=== PATIENT | female | born 1945 | race Caucasian/White ===

== ENCOUNTER 2017-04-05 09:29 | Day surgery (SDC) | payer MEDICARE, OTHER ==
[~2017-04-05] VITALS: Ht 152.4 cm; Wt 61.4 kg
[~2017-04-05 09:29] MED LIST: ALEN70TA13 PO; BENZONATATE PO; CALC-854 PO; FLUT16SP26 BOTHNARES; INSU100I8 SQ; LANTUS SUBCUT; LEVO150T8 PO; LIOT25TA8 PO; LISI-645 PO; METF500T7 PO; OMEP20TA5 PO; ONDA4TAB6 PO; PANT-47 PO; PRED2.5T4 PO; PREG50CA PO; RITUXIMAB IV; VERA180T7 PO
[2017-04-05 09:40] VITALS: BP 141/61
[2017-04-05] MEDS ORDERED: fentaNYL/PF 50MCG/1 ML 2ML syringe ONE (09:46)
[2017-04-05] MEDS ORDERED: midazolam 2 mg/2 ml injection ONE (09:47)
[2017-04-05] MEDS ORDERED: LIDOcaine Viscous 15ml cup ONE (09:47)
[2017-04-05 10:32] VITALS: BP 130/59
[2017-04-05 10:42] VITALS: BP 131/66
[2017-04-05 10:52] VITALS: BP 140/63
[2017-04-05 11:02] VITALS: BP 139/63
== END 2017-04-05 11:05 | disposition home or self-care (01) ==
LOC: GI LAB 09:29
PROVIDERS: ATTEND Internal Medicine Gastroenterology
DX: K44.9 Diaphragmatic hernia without obstruction or gangrene (principal); K29.70 Gastritis, unspecified, without bleeding; K31.89 Other diseases of stomach and duodenum; I10 Essential (primary) hypertension; E11.9 Type 2 diabetes mellitus without complications; K21.9 Gastro-esophageal reflux disease without esophagitis; Z90.49 Acquired absence of other specified parts of digestive tract; M19.90 Unspecified osteoarthritis, unspecified site; E03.9 Hypothyroidism, unspecified; Z91.011 Allergy to milk products; Z88.8 Allergy status to other drugs, medicaments and biological substances; Z79.4 Long term (current) use of insulin; Z79.899 Other long term (current) drug therapy
CPT/HCPCS: 43239; J2250; J3010; J7030; 88305; A4620; G0500

== ENCOUNTER 2018-06-19 15:34 | Emergency (ER) | payer MEDICARE, OTHER ==
[~2018-06-19] VITALS: Ht 154.9 cm; Wt 77.7 kg
[~2018-06-19 15:34] MED LIST changes: -BENZONATATE PO; -FLUT16SP26 BOTHNARES; -METF500T7 PO; -ONDA4TAB6 PO; -PANT-47 PO; +VERA180T11 PO; -VERA180T7 PO
[2018-06-19] MEDS ORDERED: HYDROcodone/acetaminophen 5mg/325mg tablet PO ONE (16:00)
[2018-06-19] MEDS ORDERED: ondansetron 4mg rapidly disintigrating tab PO ONE (16:05)
[2018-06-19] MEDS ORDERED: TRAM50TA2 PO (16:15)
[2018-06-19 16:38] VITALS: BP 178/87
[2018-06-20] MEDS ORDERED: DULO-31 PO (16:09)
[2018-06-20] MEDS ORDERED: INSU100V9 SQ (16:09)
[2018-06-20] MEDS ORDERED: INSU100C10 SQ (16:09)
[2018-06-20] MEDS ORDERED: LIOT25TA6 PO (16:09)
[2018-06-20] MEDS ORDERED: OMEP20CA10 PO (16:09)
[2018-06-20] MEDS ORDERED: LEVO125T PO (16:09)
[2018-06-20] MEDS ORDERED: VERA120T9 PO (16:09)
[2018-06-20] MEDS ORDERED: LISI-600 PO (16:09)
[2018-06-20] MEDS ORDERED: PRED2.5T4 PO (16:09)
[2018-06-23] MEDS ORDERED: LISI-600 PO (14:52)
== END 2018-06-19 16:47 | disposition home or self-care (01) ==
LOC: ER 15:35
DX: S42.215A Unspecified nondisplaced fracture of surgical neck of left humerus, initial encounter for closed fracture (principal); S80.12XA Contusion of left lower leg, initial encounter; S80.11XA Contusion of right lower leg, initial encounter; I10 Essential (primary) hypertension; E11.9 Type 2 diabetes mellitus without complications; M06.9 Rheumatoid arthritis, unspecified; Z98.890 Other specified postprocedural states; Z88.8 Allergy status to other drugs, medicaments and biological substances; Z79.4 Long term (current) use of insulin; Z79.899 Other long term (current) drug therapy; W17.89XA Other fall from one level to another, initial encounter; Y93.89 Activity, other specified; Y92.89 Other specified places as the place of occurrence of the external cause; Y99.8 Other external cause status
CPT/HCPCS: 73030; 99284

== ENCOUNTER 2018-06-20 13:04 | Inpatient (IN) | payer MEDICARE, OTHER | END 2018-06-23 15:30 | disposition home or self-care (01) | LOC: ER 13:04 → ORTHO 4S 06-21 16:37 → CICU 2S 16:12 | DX: E83.51 Hypocalcemia (principal); I26.99 Other pulmonary embolism without acute cor pulmonale ==

== ENCOUNTER 2018-07-03 10:54 | Emergency (ER) | payer MEDICARE, OTHER ==
[~2018-07-03] VITALS: Ht 154.9 cm; Wt 74.1 kg
[~2018-07-03 10:54] MED LIST changes: -ALEN70TA13 PO; -CALC-854 PO; +DULO-31 PO; +INSU100C10 SQ; -INSU100I8 SQ; +INSU100V9 SQ; -LANTUS SUBCUT; +LEVO125T PO; -LEVO150T8 PO; +LIOT25TA6 PO; -LIOT25TA8 PO; +LISI-600 PO; -LISI-645 PO; +OMEP20CA10 PO; -OMEP20TA5 PO; -PREG50CA PO; -RITUXIMAB IV; -VERA180T11 PO
[2018-07-03 12:45] VITALS: BP 176/94
== END 2018-07-03 14:07 | disposition home or self-care (01) ==
LOC: ER 10:55
DX: M25.532 Pain in left wrist (principal); R22.32 Localized swelling, mass and lump, left upper limb; I10 Essential (primary) hypertension; E11.9 Type 2 diabetes mellitus without complications; M06.9 Rheumatoid arthritis, unspecified; Z98.890 Other specified postprocedural states; Z88.6 Allergy status to analgesic agent; Z91.011 Allergy to milk products; Z79.4 Long term (current) use of insulin; Z79.899 Other long term (current) drug therapy
CPT/HCPCS: 73110; 93971; 99284

== ENCOUNTER 2019-01-14 01:21 | Emergency (ER) | payer MEDICARE, OTHER ==
[~2019-01-14] VITALS: Ht 154.9 cm; Wt 70.0 kg
[~2019-01-14 01:21] MED LIST changes: -LISI-600 PO; -OMEP20CA10 PO; +OMEP20CA11 PO
[2019-01-14 01:53] VITALS: BP 173/51
[2019-01-14] MEDS ORDERED: LEVO100T PO (01:53)
[2019-01-14] MEDS ORDERED: INSU100V9 SQ (01:53)
[2019-01-14] MEDS ORDERED: CHOL400T14 PO (01:53)
[2019-01-14] MEDS ORDERED: INSU100C10 SQ (01:53)
[2019-01-14] MEDS ORDERED: LOSA25TA96 PO (01:53)
[2019-01-14] MEDS ORDERED: naproxen 500mg tablet PO ONE (02:55)
[2019-01-14] MEDS ORDERED: HYDROcodone/acetaminophen 5mg/325mg tablet PO ONE (02:55)
[2019-01-14] MEDS ORDERED: HYDR-4383 PO (02:57)
[2019-01-14] MEDS ORDERED: NAPR-56 PO (02:57)
[2019-01-14] MEDS ORDERED: WALKERFR (03:17)
== END 2019-01-14 03:22 | disposition home or self-care (01) ==
LOC: ER 01:22
DX: M25.562 Pain in left knee (principal); I10 Essential (primary) hypertension; E11.9 Type 2 diabetes mellitus without complications; M06.9 Rheumatoid arthritis, unspecified; Z88.8 Allergy status to other drugs, medicaments and biological substances; Z79.899 Other long term (current) drug therapy; Z79.4 Long term (current) use of insulin; Z88.6 Allergy status to analgesic agent; Z91.011 Allergy to milk products; X58.XXXA Exposure to other specified factors, initial encounter; Y93.01 Activity, walking, marching and hiking; Y92.89 Other specified places as the place of occurrence of the external cause; Y99.8 Other external cause status
CPT/HCPCS: 73564; 99284

== ENCOUNTER 2019-10-15 07:28 | Emergency (ER) | payer MEDICARE, OTHER ==
[~2019-10-15] VITALS: Ht 154.9 cm; Wt 65.5 kg
[~2019-10-15 07:28] MED LIST changes: +CHOL400T14 PO; +HYDR-4383 PO; +LEVO100T PO; -LEVO125T PO; +LOSA25TA96 PO; -OMEP20CA11 PO; +OMEP20CA15 PO; +WALKERFR
[2019-10-15] MEDS ORDERED: acetaminophen 325mg tablet PO ONE (07:50)
[2019-10-15] MEDS ORDERED: dexamethasone 4mg tablet PO ONE (07:50)
[2019-10-15] MEDS ORDERED: ondansetron 4mg rapidly disintigrating tab PO ONE (07:50)
[2019-10-15] MEDS ORDERED: ketorolac trometh inj. 60 MG/2 ML VIAL IM ONE (07:50)
[2019-10-15] MEDS ORDERED: HYDROcodone/acetaminophen 5mg/325mg tablet PO ONE (07:50)
--- NOTE | 2019-10-15 09:32 | NUR ---
AWAITING ULTRASOUND RESULT.
[2019-10-15] MEDS ORDERED: HYDR-3965 PO (09:51)
[2019-10-15 10:00] VITALS: BP 170/76
== END 2019-10-15 10:17 | disposition home or self-care (01) ==
LOC: ER 07:29
DX: M25.552 Pain in left hip (principal); M79.605 Pain in left leg; I10 Essential (primary) hypertension; E11.9 Type 2 diabetes mellitus without complications; Z98.890 Other specified postprocedural states; Z88.8 Allergy status to other drugs, medicaments and biological substances; Z91.018 Allergy to other foods; Z79.4 Long term (current) use of insulin; Z79.899 Other long term (current) drug therapy
CPT/HCPCS: 73502; 93971; 96372; 99284; J1885

== ENCOUNTER 2021-07-07 11:51 | Emergency (ER) | payer MEDICARE, OTHER ==
[~2021-07-07] VITALS: Ht 154.9 cm; Wt 68.2 kg
[2021-07-07] MEDS ORDERED: normal saline 1000ML IV soln IVB ONE (15:00)
[2021-07-07 15:22] LABS: BASOPHILS # (AUTO) 0.1 X10'3 (0-0.2); BASOPHILS % (AUTO) 0.6 % (0-1); EOSINOPHILS # (AUTO) 0.2 X10'3 (0-0.9); EOSINOPHILS % (AUTO) 1.7 % (0-6); HEMATOCRIT 41.7 % (35.0-45.0); LYMPHOCYTES # (AUTO) 1.6 X10'3 (1.1-4.8); MEAN CORPUSCULAR HEMOGLOBIN 29.9 PG (27.0-31.0); MEAN CORPUSCULAR HGB CONC 33.7 g/dL (33.0-36.5); MEAN CORPUSCULAR VOLUME 88.8 FL (78-98); MEAN PLATELET VOLUME 11.2 FL (7.4-10.4); MONOCYTES # (AUTO) 0.6 X10'3 (0-0.9); MONOCYTES % (AUTO) 6.8 % (2-12); NEUTROPHILS # (AUTO) 6.7 X10'3 (1.8-7.7); NEUTROPHILS % (AUTO) 72.9 % (42-75); PLATELET COUNT 138 X10'3 (140-440); RED CELL DISTRIBUTION WIDTH 14.1 % (11.5-14.5); WHITE BLOOD COUNT 9.1 X10'3 (4.5-11.0)
[2021-07-07 15:59] LABS: ALANINE AMINOTRANSFERASE 22 U/L (12-78); ALBUMIN 3.8 G/DL (3.4-5.0); ALBUMIN/GLOBULIN RATIO 1.1 (1.1-1.5); ALKALINE PHOSPHATASE 165 IU/L (46-116); ASPARTATE AMINO TRANSFERASE 16 U/L (10-37); BLOOD UREA NITROGEN 11 MG/DL (7-18); BUN/CREATININE RATIO 14.1 (6.6-38.0); CALCIUM 9.7 MG/DL (8.5-10.1); CREATININE 0.78 MG/DL (0.40-0.90); GLUCOSE 304 MG/DL (70-104); TOTAL CARBON DIOXIDE 30.2 MMOL/L (24-32); TOTAL PROTEIN 7.4 G/DL (6.4-8.2); eGFR 72 ML/MIN
[2021-07-07] MEDS ORDERED: furosemide 10 MG/1 ML 10ml inj IV ONE (16:00)
[2021-07-07 16:10] LABS: ANION GAP 7 (8-16); CHLORIDE 103 MMOL/L (99-107); POTASSIUM 4.1 MMOL/L (3.5-5.1); SODIUM 140 MMOL/L (135-145)
[2021-07-07 16:36] LABS: CLARITY,URINE CLEAR (Clear); COLOR,URINE YELLOW (Yellow); GLUCOSE, URINE 500 mg/dl (Neg); KETONES,URINE NEGATIVE (Neg); LEUKOCYTE ESTERASE ,URINE NEGATIVE (Neg); NITRITES, URINE NEGATIVE (Neg); OCCULT BLOOD,URINE NEGATIVE (Neg); PROTEIN,URINE NEGATIVE (Neg); UROBILINOGEN,URINE 0.2 E.U/dL (0.2-1.0)
[2021-07-07 16:37] LABS: UA COLLECTION TYPE VOIDED
[2021-07-07 18:39] VITALS: BP 150/71
== END 2021-07-07 18:44 | disposition home or self-care (01) ==
LOC: ER 11:52
DX: E11.65 Type 2 diabetes mellitus with hyperglycemia (principal); E86.0 Dehydration; I10 Essential (primary) hypertension; M06.9 Rheumatoid arthritis, unspecified; Z88.8 Allergy status to other drugs, medicaments and biological substances; Z91.011 Allergy to milk products; Z79.4 Long term (current) use of insulin; Z79.899 Other long term (current) drug therapy
CPT/HCPCS: 70450; 71045; 80053; 81003; 82948; 83880; 84484; 85025; 93005; 96360; 99285; J7030

== ENCOUNTER 2021-07-12 14:19 | Emergency (ER) | payer MEDICARE, OTHER ==
[~2021-07-12] VITALS: Ht 154.9 cm; Wt 61.4 kg
[2021-07-12] MEDS ORDERED: ondansetron 4mg rapidly disintigrating tab PO ONE (16:00)
[2021-07-12] MEDS ORDERED: HYDROcodone/acetaminophen 5mg/325mg tablet PO ONE ×2 (16:00→17:35)
[2021-07-12] MEDS ORDERED: HYDR-3965 PO (20:18)
[2021-07-12 20:37] VITALS: BP 162/82
== END 2021-07-12 20:42 | disposition home or self-care (01) ==
LOC: ER 14:20
DX: S52.542A Smith's fracture of left radius, initial encounter for closed fracture (principal); R07.81 Pleurodynia; M25.532 Pain in left wrist; I10 Essential (primary) hypertension; E11.9 Type 2 diabetes mellitus without complications; F17.200 Nicotine dependence, unspecified, uncomplicated; Z98.890 Other specified postprocedural states; Z88.8 Allergy status to other drugs, medicaments and biological substances; Z79.4 Long term (current) use of insulin; Z79.899 Other long term (current) drug therapy; W19.XXXA Unspecified fall, initial encounter; Y93.89 Activity, other specified; Y92.89 Other specified places as the place of occurrence of the external cause; Y99.8 Other external cause status
CPT/HCPCS: 25605; 71045; 73100; 73110; 99284

== ENCOUNTER 2023-01-04 10:12 | Emergency (ER) | payer MEDICARE, OTHER ==
[~2023-01-04] VITALS: Ht 154.9 cm; Wt 70.9 kg
[~2023-01-04 10:12] MED LIST changes: +LOSA-415 PO; -LOSA25TA96 PO
[2023-01-04 10:29] VITALS: BP 97/57; PULSE 82; O2SAT 95
[2023-01-04] MEDS ORDERED: LIDOcaine 1.5% w/epinephrine 1:200,000 5ml ampul IJ ONE (11:15)
[2023-01-04] MEDS ORDERED: LIDOCAINE 1%/EPI 1:100,000 inj. 10 ML multi-dose vial IJ ONE (11:20)
--- NOTE | 2023-01-04 11:59 | NUR ---
agree with morena chief crew scheduler's assessment, reviewed.
[2023-01-04 12:20] VITALS: RESP 20
[2023-01-04 12:23] LABS: BASOPHILS % (AUTO) 0.3 % (0-1); EOSINOPHILS # (AUTO) 0.1 X10'3 (0-0.9); EOSINOPHILS % (AUTO) 1.3 % (0-6); HEMATOCRIT 35.6 % (35.0-45.0); HEMOGLOBIN 11.8 g/dl (12.0-16.0); LYMPHOCYTES # (AUTO) 1.4 X10'3 (1.1-4.8); LYMPHOCYTES % (AUTO) 14.5 % (21-51); MEAN CORPUSCULAR HEMOGLOBIN 28.6 PG (27.0-31.0); MEAN CORPUSCULAR HGB CONC 33.2 g/dL (33.0-36.5); MEAN CORPUSCULAR VOLUME 86.2 FL (78-98); MEAN PLATELET VOLUME 10.7 FL (7.4-10.4); MONOCYTES # (AUTO) 0.8 X10'3 (0-0.9); NEUTROPHILS # (AUTO) 7.1 X10'3 (1.8-7.7); NEUTROPHILS % (AUTO) 75.9 % (42-75); PLATELET COUNT 130 X10'3 (140-440); RED BLOOD COUNT 4.13 X10'6 (4.20-5.60); WHITE BLOOD COUNT 9.4 X10'3 (4.5-11.0)
[2023-01-04 12:43] LABS: ALANINE AMINOTRANSFERASE 18 U/L (12-78); ALBUMIN 2.9 G/DL (3.4-5.0); ALBUMIN/GLOBULIN RATIO 0.9 (1.1-1.5); ALKALINE PHOSPHATASE 145 IU/L (46-116); ANION GAP 5 (8-16); ASPARTATE AMINO TRANSFERASE 13 U/L (10-37); BILIRUBIN,TOTAL 0.9 MG/DL (0.1-1.0); BLOOD UREA NITROGEN 19 MG/DL (7-18); BUN/CREATININE RATIO 18.4 (10.0-20.0); CALCIUM 8.6 MG/DL (8.5-10.1); CHLORIDE 104 MMOL/L (99-107); CREATININE 1.03 MG/DL (0.40-0.90); GLUCOSE 246 MG/DL (70-104); POTASSIUM 4.2 MMOL/L (3.5-5.1); SODIUM 138 MMOL/L (135-145); TOTAL CARBON DIOXIDE 28.7 MMOL/L (24-32); TOTAL PROTEIN 6.2 G/DL (6.4-8.2); eCRCL 35 ML/MIN; eGFR 52 ML/MIN
[2023-01-04] MEDS ORDERED: SULF1TAB49 PO (13:11)
[2023-01-04] MEDS ORDERED: bacitracin 15gm ointment TP ONE (13:15)
[2023-01-04] MEDS ORDERED: sulfamethoxazole/trimethoprim DS (800/160mg) tablet PO ONE (13:25)
[2023-01-04 13:46] VITALS: TEMP 99.3
[2023-01-06] MEDS ORDERED: DONE-46 PO (04:45)
[2023-01-06] MEDS ORDERED: PREG100C56 PO (04:45)
[2023-01-08] MEDS ORDERED: HYDR-3965 PO (12:09)
== END 2023-01-04 14:15 | disposition home or self-care (01) ==
LOC: ER 10:13
DX: L03.116 Cellulitis of left lower limb (principal); I10 Essential (primary) hypertension; E11.9 Type 2 diabetes mellitus without complications; Z88.8 Allergy status to other drugs, medicaments and biological substances; Z79.899 Other long term (current) drug therapy; Z79.84 Long term (current) use of oral hypoglycemic drugs; Z79.2 Long term (current) use of antibiotics
CPT/HCPCS: 73610; 80053; 83605; 84145; 85025; 99284; A6449

== ENCOUNTER 2023-01-21 10:31 | Emergency (ER) | payer MEDICARE, OTHER ==
[~2023-01-21] VITALS: Ht 154.9 cm; Wt 68.0 kg
[~2023-01-21 10:31] MED LIST changes: +DONE-46 PO; +HYDR-3965 PO; -HYDR-4383 PO; -LIOT25TA6 PO; +PREG100C56 PO
[2023-01-21 10:39] VITALS: TEMP 98.2
[2023-01-21 11:10] LABS: BASOPHILS % (AUTO) 0.4 % (0-1); EOSINOPHILS # (AUTO) 0.2 X10'3 (0-0.9); EOSINOPHILS % (AUTO) 2.1 % (0-6); HEMOGLOBIN 12.3 g/dl (12.0-16.0); LYMPHOCYTES # (AUTO) 1.4 X10'3 (1.1-4.8); LYMPHOCYTES % (AUTO) 15.9 % (21-51); MEAN CORPUSCULAR HEMOGLOBIN 28.6 PG (27.0-31.0); MEAN CORPUSCULAR HGB CONC 33.1 g/dL (33.0-36.5); MEAN CORPUSCULAR VOLUME 86.2 FL (78-98); MEAN PLATELET VOLUME 10.3 FL (7.4-10.4); MONOCYTES # (AUTO) 0.8 X10'3 (0-0.9); MONOCYTES % (AUTO) 8.3 % (2-12); NEUTROPHILS # (AUTO) 6.7 X10'3 (1.8-7.7); NEUTROPHILS % (AUTO) 73.3 % (42-75); PLATELET COUNT 242 X10'3 (140-440); RED CELL DISTRIBUTION WIDTH 15.7 % (11.5-14.5); WHITE BLOOD COUNT 9.1 X10'3 (4.5-11.0)
[2023-01-21 11:34] LABS: ALANINE AMINOTRANSFERASE 44 U/L (12-78); ALBUMIN 3.4 G/DL (3.4-5.0); ALBUMIN/GLOBULIN RATIO 0.9 (1.1-1.5); ALKALINE PHOSPHATASE 194 IU/L (46-116); ANION GAP 11 (8-16); ASPARTATE AMINO TRANSFERASE 33 U/L (10-37); BLOOD UREA NITROGEN 31 MG/DL (7-18); CALCIUM 9.8 MG/DL (8.5-10.1); CHLORIDE 101 MMOL/L (99-107); CREATININE 0.97 MG/DL (0.40-0.90); GLUCOSE 254 MG/DL (70-104); LIPASE 25 U/L (16-77); POTASSIUM 4.4 MMOL/L (3.5-5.1); SODIUM 137 MMOL/L (135-145); TOTAL CARBON DIOXIDE 25.1 MMOL/L (24-32); TOTAL PROTEIN 7.4 G/DL (6.4-8.2); eCRCL 37 ML/MIN; eGFR 56 ML/MIN
[2023-01-21 12:45] LABS: BILIRUBIN,URINE NEGATIVE (Neg); CLARITY,URINE SLIGHTLY CLOUDY (Clear); COLOR,URINE YELLOW (Yellow); GLUCOSE, URINE NEGATIVE (Neg); KETONES,URINE NEGATIVE (Neg); LEUKOCYTE ESTERASE ,URINE NEGATIVE (Neg); NITRITES, URINE NEGATIVE (Neg); OCCULT BLOOD,URINE NEGATIVE (Neg); PH,URINE 5.5 (4.8-8.0); PROTEIN,URINE NEGATIVE (Neg); UROBILINOGEN,URINE 0.2 E.U/dL (0.2-1.0)
[2023-01-21 12:48] LABS: UA COLLECTION TYPE CLN CATCH MIDSTREAM
[2023-01-21 12:52] LABS: BACTERIA,URINE FEW /HPF (Neg); MUCUS STRANDS NONE SEEN /LPF (Neg); RBC,URINE NONE SEEN /HPF (0-2); SQUAMOUS EPITHELIAL CELL,UR MANY /LPF (FEW); WBC,URINE 0-4 /HPF (0-4)
[2023-01-21 13:25] LABS: C-REACTIVE PROTEIN 1.35 MG/DL (0.0-0.5)
[2023-01-21 14:09] VITALS: BP 101/73; PULSE 86; RESP 16; O2SAT 99
[2023-01-21] MEDS ORDERED: ONDA4TAB12 PO (14:20)
[2023-01-21] MEDS ORDERED: MAG355OR18 PO (14:20)
== END 2023-01-21 14:46 | disposition home or self-care (01) ==
LOC: ER 10:31
DX: S91.002A Unspecified open wound, left ankle, initial encounter (principal); Z20.822 Contact with and (suspected) exposure to COVID-19; R53.1 Weakness; R73.9 Hyperglycemia, unspecified; X58.XXXA Exposure to other specified factors, initial encounter; Y93.89 Activity, other specified; Y92.89 Other specified places as the place of occurrence of the external cause; Y99.8 Other external cause status
CPT/HCPCS: 36415; 73610; 80053; 81001; 83690; 85025; 85651; 86140; 87070; 87077; 87186; 87502; 87503; 87811; 99284; A6258; A6449

== ENCOUNTER 2023-11-05 00:23 | Inpatient (IN) | payer MEDICARE, OTHER ==
[~2023-11-05] VITALS: Ht 154.9 cm; Wt 58.0 kg
[~2023-11-05 00:23] MED LIST changes: -HYDR-3965 PO; +ONDA-243 PO
[2023-11-05 01:14] LABS: BASOPHILS % (AUTO) 0.3 % (0-1); EOSINOPHILS % (AUTO) 0.1 % (0-6); HEMATOCRIT 33.5 % (35.0-45.0); HEMOGLOBIN 10.9 g/dl (12.0-16.0); LYMPHOCYTES # (AUTO) 0.4 X10'3 (1.1-4.8); LYMPHOCYTES % (AUTO) 3.2 % (21-51); MEAN CORPUSCULAR HEMOGLOBIN 26.6 PG (27.0-31.0); MEAN CORPUSCULAR HGB CONC 32.5 g/dL (33.0-36.5); MEAN CORPUSCULAR VOLUME 81.9 FL (78-98); MEAN PLATELET VOLUME 8.8 FL (7.4-10.4); MONOCYTES # (AUTO) 0.1 X10'3 (0-0.9); MONOCYTES % (AUTO) 0.7 % (2-12); NEUTROPHILS # (AUTO) 12.1 X10'3 (1.8-7.7); NEUTROPHILS % (AUTO) 95.7 % (42-75); PLATELET COUNT 212 X10'3 (140-440); RED BLOOD COUNT 4.09 X10'6 (4.20-5.60); RED CELL DISTRIBUTION WIDTH 17.9 % (11.5-14.5); WHITE BLOOD COUNT 12.6 X10'3 (4.5-11.0)
[2023-11-05 01:34] LABS: ALANINE AMINOTRANSFERASE 20 U/L (12-78); ALBUMIN 2.4 G/DL (3.4-5.0); ALBUMIN/GLOBULIN RATIO 0.6 (1.1-1.5); ALKALINE PHOSPHATASE 220 IU/L (46-116); ANION GAP 13 (8-16); ASPARTATE AMINO TRANSFERASE 23 U/L (10-37); BILIRUBIN,TOTAL 1.9 MG/DL (0.1-1.0); BLOOD UREA NITROGEN 13 MG/DL (7-18); BUN/CREATININE RATIO 12.1 (10.0-20.0); CALCIUM 8.4 MG/DL (8.5-10.1); CHLORIDE 99 MMOL/L (99-107); CREATININE 1.07 MG/DL (0.40-0.90); GLUCOSE 168 MG/DL (70-104); PRO BRAIN NATRIURETIC PEPTIDE 2690 PG/ML (0-450); SODIUM 135 MMOL/L (135-145); TOTAL CARBON DIOXIDE 22.7 MMOL/L (24-32); TOTAL PROTEIN 6.2 G/DL (6.4-8.2); eCRCL 33 ML/MIN; eGFR 50 ML/MIN
[2023-11-05 01:39] LABS: POTASSIUM 2.4 MMOL/L (3.5-5.1)
[2023-11-05 01:45] LABS: BILIRUBIN,URINE NEGATIVE (Neg); CLARITY,URINE CLOUDY (Clear); COLOR,URINE YELLOW (Yellow); GLUCOSE, URINE NEGATIVE (Neg); KETONES,URINE NEGATIVE (Neg); LEUKOCYTE ESTERASE ,URINE MODERATE (Neg); NITRITES, URINE NEGATIVE (Neg); OCCULT BLOOD,URINE TRACE-INTACT (Neg); PROTEIN,URINE 30 mg/dl (Neg); UA COLLECTION TYPE STRAIGHT CATH; UROBILINOGEN,URINE 0.2 E.U/dL (0.2-1.0)
[2023-11-05] MEDS: normal saline 1000ML IV soln IV ONE (01:54)
[2023-11-05] MEDS: CefTRIAXone 2gm/D5W 50ml BAG 50 ML IV ONE (01:55)
[2023-11-05 02:00] LABS: BACTERIA,URINE 1+ /HPF (Neg); MUCUS STRANDS FEW /LPF (Neg); RBC,URINE 0-2 /HPF (0-2); SQUAMOUS EPITHELIAL CELL,UR FEW /LPF (FEW); WBC CLUMPS,URINE FEW /HPF (NEGATIVE); WBC,URINE 50-100 /HPF (0-4)
[2023-11-05] MEDS ORDERED: BENZ200C53 PO (02:34)
[2023-11-05] MEDS ORDERED: ONDA-243 PO (02:34)
[2023-11-05] MEDS ORDERED: LANTUS SUBCUT (02:34)
[2023-11-05] MEDS ORDERED: DULA1.5P SUBCUT (02:34)
[2023-11-05] MEDS ORDERED: magnesium hydroxide 30ml (MOM) UD suspension PO PRN (03:05)
[2023-11-05] MEDS ORDERED: potassium Cl 40MEQ/1/2NS 520ml 520 ML IV PRN (03:05)
[2023-11-05] MEDS ORDERED: magnesium sulf-water 2g/50mL 50 ML IV PRN (03:05)
[2023-11-05] MEDS ORDERED: potassium Cl 20 mEq SR tablet PO PRN (03:05)
[2023-11-05] MEDS ORDERED: magnesium sulf-water 4G/100mL 100 ML IV PRN (03:05)
[2023-11-05] MEDS ORDERED: acetaminophen 325mg tablet PO PRN (03:05)
[2023-11-05] MEDS ORDERED: mag hydrox/Alum hydrox/simeth 30ml oral suspension PO PRN (03:05)
[2023-11-05] MEDS: ringers solution, lacted 1,000 ML IV ONE (03:19)
[2023-11-05] MEDS ORDERED: glucagon, human recombinant 1mg kit SUBCUT PRN (03:45)
[2023-11-05] MEDS ORDERED: dextrose 50%-water 50ml dispensing syringe IV PRN ×2 (03:45)
[2023-11-05] MEDS ORDERED: DEXTROSE 15 GM of carb/4 tabs (each vial/BOTTLE has 4 tablets) PO PRN ×2 (03:45)
[2023-11-05] MEDS: magnesium Cl slow-release 64mg tablet PO PRN (04:21)
[2023-11-05] MEDS: potassium Cl 20 mEq SR tablet PO PRN (04:22)
[2023-11-05] MEDS: magnesium sulf-water 2g/50mL 50 ML IV ONE (04:26)
[2023-11-05] MEDS: normal saline 1000ml 1,000 ML IV SCH (04:27)
[2023-11-05 06:58] LABS: MAGNESIUM 1.9 MG/DL (1.5-2.4)
[2023-11-05] MEDS: INSULIN LISPRO 100 UNIT/ML INSULN.PEN MULTI-DOSE SQ SCH ×2 (07:00→09:00)
[2023-11-05 07:09] LABS: POTASSIUM 2.7 MMOL/L (3.5-5.1)
[2023-11-05 07:33] LABS: HEMOGLOBIN A1C 6.9 % (4.5-6.2)
[2023-11-05] MEDS: K and/or MAG REPLACEMENT MC SCH (08:00)
[2023-11-05 08:17] VITALS: BP 98/46; PULSE 74; RESP 14; TEMP 97.6; O2SAT 97
[2023-11-05] MEDS: losartan 25mg tablet PO SCH (09:10)
[2023-11-05] MEDS: docusate sod 100mg capsule PO SCH (09:15)
[2023-11-05] MEDS: cholecalciferol (vitamin D3) 400 unit (10mcg) tablet PO SCH (09:17)
[2023-11-05] MEDS: levoTHYROXINE 100mcg tablet PO SCH (09:17)
[2023-11-05] MEDS: duloxetine 30mg CAPSULE.DR PO SCH (09:17)
[2023-11-05] MEDS: pantoprazole 40mg Tablet.DR PO SCH (09:22)
[2023-11-05] MEDS: predniSONE 5mg tablet PO SCH (09:55)
[2023-11-05 11:47] VITALS: BP 103/39; PULSE 74; RESP 14; TEMP 97.5; O2SAT 97
[2023-11-05 12:00] VITALS: RESP 16
[2023-11-05] MEDS: ondansetron/PF 4mg/2ml inj IV PRN (13:26)
[2023-11-05 18:00] VITALS: BP 116/46; PULSE 100; RESP 16; TEMP 97.6; O2SAT 91
[2023-11-05 20:00] VITALS: RESP 16
[2023-11-05] MEDS: insulin glargine (Lantus) pen - multi-dose SQ SCH (20:51)
[2023-11-05] MEDS: donepezil 5mg tablet PO SCH (21:06)
[2023-11-05] MEDS: enoxaparin 40mg/0.4ml syringe SQ SCH (21:07)
[2023-11-05 22:00] VITALS: BP 123/49; PULSE 85; RESP 16; TEMP 97.3; O2SAT 99
[2023-11-06 06:00] VITALS: BP 123/38; PULSE 83; RESP 22; TEMP 97.8; O2SAT 96
[2023-11-06 07:43] LABS: BASOPHILS % (AUTO) 0.3 % (0-1); EOSINOPHILS # (AUTO) 0.1 X10'3 (0-0.9); EOSINOPHILS % (AUTO) 0.5 % (0-6); HEMATOCRIT 32.1 % (35.0-45.0); HEMOGLOBIN 10.1 g/dl (12.0-16.0); LYMPHOCYTES # (AUTO) 1.3 X10'3 (1.1-4.8); LYMPHOCYTES % (AUTO) 9.5 % (21-51); MEAN CORPUSCULAR HEMOGLOBIN 26.6 PG (27.0-31.0); MEAN CORPUSCULAR HGB CONC 31.3 g/dL (33.0-36.5); MEAN CORPUSCULAR VOLUME 84.8 FL (78-98); MEAN PLATELET VOLUME 9.6 FL (7.4-10.4); MONOCYTES % (AUTO) 7.2 % (2-12); NEUTROPHILS # (AUTO) 11.6 X10'3 (1.8-7.7); NEUTROPHILS % (AUTO) 82.5 % (42-75); PLATELET COUNT 148 X10'3 (140-440); RED BLOOD COUNT 3.79 X10'6 (4.20-5.60); RED CELL DISTRIBUTION WIDTH 18.6 % (11.5-14.5); WHITE BLOOD COUNT 14.1 X10'3 (4.5-11.0)
[2023-11-06 07:58] LABS: ALANINE AMINOTRANSFERASE 17 U/L (12-78); ALBUMIN 2.1 G/DL (3.4-5.0); ALBUMIN/GLOBULIN RATIO 0.6 (1.1-1.5); ALKALINE PHOSPHATASE 157 IU/L (46-116); ANION GAP 11 (8-16); ASPARTATE AMINO TRANSFERASE 19 U/L (10-37); BILIRUBIN,TOTAL 0.5 MG/DL (0.1-1.0); BLOOD UREA NITROGEN 15 MG/DL (7-18); BUN/CREATININE RATIO 14.9 (10.0-20.0); CALCIUM 7.7 MG/DL (8.5-10.1); CHLORIDE 109 MMOL/L (99-107); CREATININE 1.01 MG/DL (0.40-0.90); GLUCOSE 125 MG/DL (70-104); SODIUM 139 MMOL/L (135-145); TOTAL CARBON DIOXIDE 19.2 MMOL/L (24-32); TOTAL PROTEIN 5.8 G/DL (6.4-8.2); eCRCL 35 ML/MIN; eGFR 53 ML/MIN
[2023-11-06 08:00] VITALS: RESP 22; O2SAT 96
[2023-11-06 10:00] VITALS: BP 144/55; PULSE 82; RESP 16; TEMP 97.4; O2SAT 97
[2023-11-06 18:00] VITALS: BP 120/66; PULSE 82; RESP 16; TEMP 97.9; O2SAT 97
[2023-11-06] MEDS: lactose-reduced food (Ensure Enlive) - 237ml bottle PO SCH (18:00)
[2023-11-06 22:00] VITALS: BP 144/54; PULSE 82; RESP 14; TEMP 97.5; O2SAT 97
[2023-11-07] MEDS: CefTRIAXone 2gm/D5W 50ml BAG 50 ML IV SCH (02:57)
[2023-11-07 06:00] VITALS: BP 185/72; PULSE 78; RESP 16; TEMP 97.1; O2SAT 98
[2023-11-07 06:28] LABS: BASOPHILS % (AUTO) 0.3 % (0-1); EOSINOPHILS # (AUTO) 0.1 X10'3 (0-0.9); HEMOGLOBIN 10.2 g/dl (12.0-16.0); LYMPHOCYTES # (AUTO) 1.2 X10'3 (1.1-4.8); LYMPHOCYTES % (AUTO) 9.6 % (21-51); MEAN CORPUSCULAR HEMOGLOBIN 26.2 PG (27.0-31.0); MEAN CORPUSCULAR HGB CONC 30.8 g/dL (33.0-36.5); MEAN CORPUSCULAR VOLUME 84.9 FL (78-98); MEAN PLATELET VOLUME 9.3 FL (7.4-10.4); MONOCYTES # (AUTO) 0.8 X10'3 (0-0.9); MONOCYTES % (AUTO) 6.6 % (2-12); NEUTROPHILS # (AUTO) 10.5 X10'3 (1.8-7.7); NEUTROPHILS % (AUTO) 82.5 % (42-75); PLATELET COUNT 134 X10'3 (140-440); RED BLOOD COUNT 3.88 X10'6 (4.20-5.60); RED CELL DISTRIBUTION WIDTH 18.4 % (11.5-14.5); WHITE BLOOD COUNT 12.7 X10'3 (4.5-11.0)
[2023-11-07 07:09] LABS: ALANINE AMINOTRANSFERASE 12 U/L (12-78); ALBUMIN 2.1 G/DL (3.4-5.0); ALBUMIN/GLOBULIN RATIO 0.5 (1.1-1.5); ALKALINE PHOSPHATASE 179 IU/L (46-116); ANION GAP 15 (8-16); ASPARTATE AMINO TRANSFERASE 18 U/L (10-37); BILIRUBIN,TOTAL 0.4 MG/DL (0.1-1.0); BLOOD UREA NITROGEN 10 MG/DL (7-18); CALCIUM 7.7 MG/DL (8.5-10.1); CHLORIDE 104 MMOL/L (99-107); CREATININE 0.25 MG/DL (0.40-0.90); GLUCOSE 172 MG/DL (70-104); SODIUM 138 MMOL/L (135-145); TOTAL CARBON DIOXIDE 18.8 MMOL/L (24-32); eCRCL 140 ML/MIN; eGFR > 90 ML/MIN
[2023-11-07] MEDS: sodium bicarbonate 1meq/ml inj 150 ML in dextrose 5%-water 1,000 ML IV SCH (09:26)
[2023-11-07 10:00] VITALS: BP 148/74; PULSE 56; RESP 16; TEMP 98.2; O2SAT 98
[2023-11-07 14:32] LABS: ALANINE AMINOTRANSFERASE 19 U/L (12-78); ALBUMIN/GLOBULIN RATIO 0.5 (1.1-1.5); ALKALINE PHOSPHATASE 166 IU/L (46-116); ANION GAP 12 (8-16); ASPARTATE AMINO TRANSFERASE 17 U/L (10-37); BILIRUBIN,TOTAL 0.5 MG/DL (0.1-1.0); BLOOD UREA NITROGEN 9 MG/DL (7-18); BUN/CREATININE RATIO 11.4 (10.0-20.0); CALCIUM 7.2 MG/DL (8.5-10.1); CHLORIDE 101 MMOL/L (99-107); CREATININE 0.79 MG/DL (0.40-0.90); GLUCOSE 243 MG/DL (70-104); POTASSIUM 3.5 MMOL/L (3.5-5.1); SODIUM 134 MMOL/L (135-145); TOTAL CARBON DIOXIDE 21.3 MMOL/L (24-32); TOTAL PROTEIN 5.9 G/DL (6.4-8.2); eCRCL 44 ML/MIN; eGFR 70 ML/MIN
[2023-11-07] MEDS ORDERED: POTA8CAP20 PO (15:11)
[2023-11-07] MEDS ORDERED: LEVO-65 PO (15:11)
== END 2023-11-07 16:30 | disposition home health service (06) | DRG 871 ==
LOC: ER 00:24 → ED HOLD 03:09 → EDBEDREQ 06:14 → ORTHO 4S 07:59
PROVIDERS: ADMIT Surgery; ATTEND Family Medicine
DX: A41.51 Sepsis due to Escherichia coli [E. coli] (principal); I21.A1 Myocardial infarction type 2; N12 Tubulo-interstitial nephritis, not specified as acute or chronic; E87.6 Hypokalemia; E83.42 Hypomagnesemia; I10 Essential (primary) hypertension; M06.9 Rheumatoid arthritis, unspecified; E11.42 Type 2 diabetes mellitus with diabetic polyneuropathy; F03.A0 Unspecified dementia, mild, without behavioral disturbance, psychotic disturbance, mood disturbance, and anxiety; E78.5 Hyperlipidemia, unspecified; E03.9 Hypothyroidism, unspecified; R94.31 Abnormal electrocardiogram [ECG] [EKG]; Z20.822 Contact with and (suspected) exposure to COVID-19; I25.2 Old myocardial infarction; Z88.6 Allergy status to analgesic agent; Z79.899 Other long term (current) drug therapy; Z79.4 Long term (current) use of insulin; Z95.1 Presence of aortocoronary bypass graft; Z82.49 Family history of ischemic heart disease and other diseases of the circulatory system
CPT/HCPCS: 36415; 71045; 74176; 80053; 81001; 82948; 83036; 83605; 83735; 83880; 84132; 84145; 84484; 85025; 87040; 87077; 87081; 87088; 87186; 87324; 87449; 87811; 93005; 97110; 97161; 97530; 99285; A4615; A6449; C1758; G0378; J0696; J1650; J1815; J2405; J3490; J7030; J7070; J7512

== ENCOUNTER 2024-04-08 18:12 | Inpatient (IN) | payer MEDICARE, OTHER ==
[~2024-04-08] VITALS: Ht 154.9 cm; Wt 62.3 kg
[~2024-04-08 18:12] MED LIST changes: +BENZ200C53 PO; -DONE-46 PO; +DULA1.5P SUBCUT; -INSU100V9 SQ; +LANTUS SUBCUT; +LEVO-65 PO; +POTA8CAP20 PO
[2024-04-08 19:25] LABS: BASOPHILS % (AUTO) 0.3 % (0-1); EOSINOPHILS # (AUTO) 0.3 X10'3 (0-0.9); EOSINOPHILS % (AUTO) 4.4 % (0-6); HEMATOCRIT 37.3 % (35.0-45.0); HEMOGLOBIN 12.6 g/dl (12.0-16.0); LYMPHOCYTES # (AUTO) 0.9 X10'3 (1.1-4.8); LYMPHOCYTES % (AUTO) 12.5 % (21-51); MEAN CORPUSCULAR VOLUME 82.5 FL (78-98); MEAN PLATELET VOLUME 10.2 FL (7.4-10.4); MONOCYTES # (AUTO) 0.7 X10'3 (0-0.9); MONOCYTES % (AUTO) 9.1 % (2-12); NEUTROPHILS # (AUTO) 5.3 X10'3 (1.8-7.7); NEUTROPHILS % (AUTO) 73.7 % (42-75); PLATELET COUNT 121 X10'3 (140-440); RED BLOOD COUNT 4.52 X10'6 (4.20-5.60); RED CELL DISTRIBUTION WIDTH 15.4 % (11.5-14.5); WHITE BLOOD COUNT 7.2 X10'3 (4.5-11.0)
[2024-04-08 19:34] LABS: ALANINE AMINOTRANSFERASE 23 U/L (12-78); ALBUMIN 3.2 G/DL (3.4-5.0); ALBUMIN/GLOBULIN RATIO 0.9 (1.1-1.5); ALKALINE PHOSPHATASE 140 IU/L (46-116); ANION GAP 11 (8-16); ASPARTATE AMINO TRANSFERASE 32 U/L (10-37); BILIRUBIN,TOTAL 1.3 MG/DL (0.1-1.0); BLOOD UREA NITROGEN 13 MG/DL (7-18); BUN/CREATININE RATIO 11.9 (10.0-20.0); CALCIUM 8.6 MG/DL (8.5-10.1); CHLORIDE 98 MMOL/L (99-107); CREATININE 1.09 MG/DL (0.40-0.90); GLUCOSE 141 MG/DL (70-104); LIPASE 18 U/L (16-77); SODIUM 137 MMOL/L (135-145); TOTAL PROTEIN 6.9 G/DL (6.4-8.2); eCRCL 32 ML/MIN; eGFR 49 ML/MIN
[2024-04-08 20:08] LABS: POTASSIUM 2.4 MMOL/L (3.5-5.1)
[2024-04-08 21:21] LABS: MAGNESIUM 1.4 MG/DL (1.5-2.4)
[2024-04-08 22:22] LABS: BILIRUBIN,URINE NEGATIVE (Neg); CLARITY,URINE CLEAR (Clear); COLOR,URINE YELLOW (Yellow); GLUCOSE, URINE NEGATIVE (Neg); KETONES,URINE NEGATIVE (Neg); LEUKOCYTE ESTERASE ,URINE NEGATIVE (Neg); NITRITES, URINE NEGATIVE (Neg); OCCULT BLOOD,URINE NEGATIVE (Neg); PROTEIN,URINE NEGATIVE (Neg); UROBILINOGEN,URINE 0.2 E.U/dL (0.2-1.0)
[2024-04-08 22:27] LABS: UA COLLECTION TYPE NON-SPECIFIED
[2024-04-08] MEDS: potassium Cl 20 mEq SR tablet PO ONE (22:28)
[2024-04-08] MEDS: magnesium sulf-water 2g/50mL 50 ML IV ONE (22:33)
[2024-04-08] MEDS: potassium Cl 40MEQ/1/2NS 520ml 520 ML IV PRN (23:25)
[2024-04-09] MEDS ORDERED: mag hydrox/Alum hydrox/simeth 30ml oral suspension PO PRN (00:45)
[2024-04-09] MEDS ORDERED: bisacodyl 10mg suppository rectal RC PRN (00:45)
[2024-04-09] MEDS ORDERED: magnesium hydroxide 30ml (MOM) UD suspension PO PRN (00:45)
[2024-04-09] MEDS ORDERED: magnesium sulf-water 4G/100mL 100 ML IV PRN (00:45)
[2024-04-09] MEDS ORDERED: acetaminophen 325mg tablet PO PRN (00:45)
[2024-04-09] MEDS ORDERED: potassium Cl 40MEQ/1/2NS 520ml 520 ML IV PRN (00:45)
[2024-04-09] MEDS ORDERED: HYDROcodone/acetaminophen 5mg/325mg tablet PO PRN (00:45)
[2024-04-09] MEDS ORDERED: magnesium sulf-water 2g/50mL 50 ML IV PRN (00:45)
[2024-04-09] MEDS ORDERED: glucagon, human recombinant 1mg kit SUBCUT PRN (01:20)
[2024-04-09] MEDS ORDERED: dextrose 50%-water 50ml dispensing syringe IV PRN ×2 (01:20)
[2024-04-09] MEDS ORDERED: DEXTROSE 15 GM of carb/4 tabs (each vial/BOTTLE has 4 tablets) PO PRN ×2 (01:20)
[2024-04-09 01:40] LABS: HEMOGLOBIN A1C 6.3 % (4.5-6.2)
[2024-04-09] MEDS: normal saline 1000ml 1,000 ML IV SCH (02:48)
[2024-04-09 03:34] LABS: MAGNESIUM 1.9 MG/DL (1.5-2.4); POTASSIUM 3.1 MMOL/L (3.5-5.1)
[2024-04-09] MEDS: INSULIN LISPRO 100 UNIT/ML INSULN.PEN MULTI-DOSE SQ SCH (07:00)
[2024-04-09 07:15] VITALS: BP 141/96; PULSE 85; RESP 17; TEMP 97.6; O2SAT 98
[2024-04-09 08:00] VITALS: RESP 17; O2SAT 98
[2024-04-09] MEDS: enoxaparin 40mg/0.4ml syringe SUBCUT SCH (08:00)
[2024-04-09] MEDS: losartan 25mg tablet PO SCH (08:00)
[2024-04-09] MEDS: K and/or MAG REPLACEMENT MC SCH (08:00)
[2024-04-09] MEDS: docusate sod 100mg capsule PO SCH (08:00)
[2024-04-09 10:00] VITALS: BP 107/60; PULSE 65; RESP 17; TEMP 97.5; O2SAT 99
[2024-04-09] MEDS: PERFLUTREN PROTEIN-A MICROSPHR (Optison) 0.22 MG/ML 3ML VIAL IV ONE (10:55)
[2024-04-09 12:30] VITALS: BP 122/75; PULSE 18; RESP 18; TEMP 98.2; O2SAT 94
[2024-04-09] MEDS: lactose-reduced food (Ensure Enlive) - 237ml bottle PO SCH (13:00)
[2024-04-09 18:00] VITALS: BP 141/87; PULSE 84; RESP 16; TEMP 97.5; O2SAT 95
[2024-04-09] MEDS: magnesium sulf-water 2g/50mL 50 ML IV ONE (19:34)
[2024-04-09] MEDS: potassium Cl 20 mEq SR tablet PO PRN (20:11)
[2024-04-09 22:00] VITALS: BP 153/59; PULSE 85; RESP 16; TEMP 98.4; O2SAT 95
[2024-04-09] MEDS: insulin glargine (Lantus) pen - multi-dose SQ SCH (22:57)
[2024-04-10] VITALS (8 sets, daily range): BP systolic 105–164; BP diastolic 51–76; PULSE 63–86; RESP 14–20; TEMP 97.5–98.1; O2SAT 96–100
[2024-04-10 06:05] LABS: BASOPHILS % (AUTO) 0.4 % (0-1); EOSINOPHILS # (AUTO) 0.4 X10'3 (0-0.9); LYMPHOCYTES # (AUTO) 1.3 X10'3 (1.1-4.8)
[2024-04-10 06:07] LABS: EOSINOPHILS % (AUTO) 4.4 % (0-6); HEMATOCRIT 37.6 % (35.0-45.0); HEMOGLOBIN 12.5 g/dl (12.0-16.0); LYMPHOCYTES % (AUTO) 14.6 % (21-51); MEAN CORPUSCULAR HEMOGLOBIN 27.9 PG (27.0-31.0); MEAN CORPUSCULAR HGB CONC 33.3 g/dL (33.0-36.5); MEAN CORPUSCULAR VOLUME 83.7 FL (78-98); MEAN PLATELET VOLUME 10.8 FL (7.4-10.4); MONOCYTES # (AUTO) 0.6 X10'3 (0-0.9); NEUTROPHILS # (AUTO) 6.7 X10'3 (1.8-7.7); NEUTROPHILS % (AUTO) 73.6 % (42-75); PLATELET COUNT 137 X10'3 (140-440); RED BLOOD COUNT 4.49 X10'6 (4.20-5.60); RED CELL DISTRIBUTION WIDTH 15.7 % (11.5-14.5); WHITE BLOOD COUNT 9.1 X10'3 (4.5-11.0)
[2024-04-10 06:09] LABS: ALANINE AMINOTRANSFERASE 24 U/L (12-78); ALBUMIN/GLOBULIN RATIO 0.9 (1.1-1.5); ALKALINE PHOSPHATASE 160 IU/L (46-116); ANION GAP 6 (8-16); ASPARTATE AMINO TRANSFERASE 27 U/L (10-37); BILIRUBIN,TOTAL 0.8 MG/DL (0.1-1.0); BLOOD UREA NITROGEN 7 MG/DL (7-18); BUN/CREATININE RATIO 10.1 (10.0-20.0); CALCIUM 8.3 MG/DL (8.5-10.1); CHLORIDE 107 MMOL/L (99-107); CREATININE 0.69 MG/DL (0.40-0.90); GLUCOSE 172 MG/DL (70-104); MAGNESIUM 2.2 MG/DL (1.5-2.4); PHOSPHORUS 1.6 MG/DL (2.3-4.5); POTASSIUM 4.8 MMOL/L (3.5-5.1); SODIUM 140 MMOL/L (135-145); TOTAL CARBON DIOXIDE 27.3 MMOL/L (24-32); TOTAL PROTEIN 6.5 G/DL (6.4-8.2); eCRCL 51 ML/MIN; eGFR 82 ML/MIN
[2024-04-10 06:34] LABS: LARGE PLATELETS FEW; PLATELET ESTIMATE DECREASED
[2024-04-10] MEDS ORDERED: sodium phosphate inj. 15 MMOL in dextrose 5%-water 250 ML IV PRN (07:25)
[2024-04-10] MEDS ORDERED: sodium phosphate inj. 30 MMOL in dextrose 5%-water 250 ML IV PRN (07:25)
[2024-04-10] MEDS ORDERED: benzonatate 100mg capsule PO PRN (07:30)
[2024-04-10] MEDS: predniSONE 5mg tablet PO SCH (08:00)
[2024-04-10 08:44] LABS: C DIFF ANTIGEN NEGATIVE (NEGATIVE); C DIFF SPECIMEN=DIARRHEA? ACCEPTABLE; C DIFFICILE TOXINS A&B NEGATIVE (Neg)
[2024-04-10] MEDS: pregabalin 25mg capsule PO SCH (08:51)
[2024-04-10] MEDS: duloxetine 30mg CAPSULE.DR PO SCH (08:51)
[2024-04-10] MEDS: Neutra Phos packet PO PRN (08:53)
[2024-04-10] MEDS ORDERED: ATOR20TA PO (11:09)
[2024-04-10] MEDS ORDERED: losartan 25mg tablet PO SCH (11:20)
[2024-04-10] MEDS: DULAGLUTIDE 1.5 MG/0.5 ML SUBCUT SCH (12:40)
[2024-04-10] MEDS: losartan 25mg tablet PO ONE (12:41)
[2024-04-10 18:26] LABS: POTASSIUM 4.4 MMOL/L (3.5-5.1)
[2024-04-10 19:07] LABS: THYROID STIMULATING HORMONE 2.57 ulU/ml (0.34-4.50)
[2024-04-10] MEDS: losartan 25mg tablet PO SCH (21:37)
[2024-04-11] MEDS: ondansetron/PF 4mg/2ml inj IV PRN (01:50)
[2024-04-11] MEDS: normal saline 1000ml 1,000 ML IV SCH (02:45)
[2024-04-11 06:00] VITALS: BP 158/79; PULSE 76; RESP 14; TEMP 98.5; O2SAT 93
[2024-04-11 06:06] LABS: BASOPHILS % (AUTO) 0.2 % (0-1); EOSINOPHILS # (AUTO) 0.1 X10'3 (0-0.9); EOSINOPHILS % (AUTO) 0.7 % (0-6); HEMATOCRIT 39.5 % (35.0-45.0); LYMPHOCYTES # (AUTO) 0.9 X10'3 (1.1-4.8); MEAN CORPUSCULAR HEMOGLOBIN 27.3 PG (27.0-31.0); MEAN CORPUSCULAR VOLUME 82.9 FL (78-98); MEAN PLATELET VOLUME 10.8 FL (7.4-10.4); MONOCYTES # (AUTO) 0.6 X10'3 (0-0.9); MONOCYTES % (AUTO) 3.8 % (2-12); NEUTROPHILS # (AUTO) 13.6 X10'3 (1.8-7.7); NEUTROPHILS % (AUTO) 89.3 % (42-75); PLATELET COUNT 152 X10'3 (140-440); RED BLOOD COUNT 4.76 X10'6 (4.20-5.60); RED CELL DISTRIBUTION WIDTH 16.1 % (11.5-14.5); WHITE BLOOD COUNT 15.3 X10'3 (4.5-11.0)
[2024-04-11 06:16] LABS: ALANINE AMINOTRANSFERASE 27 U/L (12-78); ALBUMIN 3.2 G/DL (3.4-5.0); ALBUMIN/GLOBULIN RATIO 0.9 (1.1-1.5); ALKALINE PHOSPHATASE 184 IU/L (46-116); ANION GAP 10 (8-16); ASPARTATE AMINO TRANSFERASE 26 U/L (10-37); BILIRUBIN,TOTAL 1.3 MG/DL (0.1-1.0); BLOOD UREA NITROGEN 9 MG/DL (7-18); BUN/CREATININE RATIO 10.8 (10.0-20.0); CALCIUM 8.8 MG/DL (8.5-10.1); CHLORIDE 101 MMOL/L (99-107); CREATININE 0.83 MG/DL (0.40-0.90); GLUCOSE 301 MG/DL (70-104); MAGNESIUM 1.4 MG/DL (1.5-2.4); POTASSIUM 4.1 MMOL/L (3.5-5.1); SODIUM 136 MMOL/L (135-145); TOTAL CARBON DIOXIDE 24.9 MMOL/L (24-32); TOTAL PROTEIN 6.9 G/DL (6.4-8.2); eCRCL 42 ML/MIN; eGFR 66 ML/MIN
[2024-04-11 07:34] LABS: ANISOCYTOSIS 1+; LARGE PLATELETS FEW; PLATELET ESTIMATE NORMAL; TOTAL CELLS COUNTED 100
[2024-04-11] MEDS: magnesium Cl slow-release 64mg tablet PO PRN (07:34)
[2024-04-11 10:00] VITALS: BP 130/54; PULSE 89; RESP 16; TEMP 97.7; O2SAT 94
[2024-04-11 11:23] LABS: BASOPHILS % (AUTO) 0.1 % (0-1); EOSINOPHILS % (AUTO) 0.2 % (0-6); HEMATOCRIT 34.1 % (35.0-45.0); HEMOGLOBIN 11.2 g/dl (12.0-16.0); LYMPHOCYTES % (AUTO) 9.2 % (21-51); MEAN CORPUSCULAR HEMOGLOBIN 27.2 PG (27.0-31.0); MEAN CORPUSCULAR HGB CONC 32.7 g/dL (33.0-36.5); MEAN CORPUSCULAR VOLUME 83.3 FL (78-98); MONOCYTES # (AUTO) 1.5 X10'3 (0-0.9); MONOCYTES % (AUTO) 6.7 % (2-12); NEUTROPHILS # (AUTO) 18.5 X10'3 (1.8-7.7); NEUTROPHILS % (AUTO) 83.8 % (42-75); PLATELET COUNT 145 X10'3 (140-440); RED CELL DISTRIBUTION WIDTH 15.9 % (11.5-14.5); WHITE BLOOD COUNT 22.1 X10'3 (4.5-11.0)
[2024-04-11 11:52] LABS: BILIRUBIN,URINE NEGATIVE (Neg); CLARITY,URINE SLIGHTLY CLOUDY (Clear); COLOR,URINE STRAW (Yellow); GLUCOSE, URINE 100 mg/dl (Neg); KETONES,URINE NEGATIVE (Neg); LEUKOCYTE ESTERASE ,URINE TRACE (Neg); NITRITES, URINE POSITIVE (Neg); OCCULT BLOOD,URINE NEGATIVE (Neg); PH,URINE 6.5 (4.8-8.0); PROTEIN,URINE NEGATIVE (Neg); UROBILINOGEN,URINE 0.2 E.U/dL (0.2-1.0)
[2024-04-11 11:53] LABS: UA COLLECTION TYPE STRAIGHT CATH
[2024-04-11 11:59] LABS: BACTERIA,URINE 4+ /HPF (Neg); MUCUS STRANDS NONE SEEN /LPF (Neg); RBC,URINE NONE SEEN /HPF (0-2); SQUAMOUS EPITHELIAL CELL,UR NONE SEEN /LPF (FEW); TRANSITIONAL EPI CELLS,URINE FEW /HPF; WBC,URINE 0-4 /HPF (0-4)
[2024-04-11] MEDS: CefTRIAXone/D5W-Rocephin 1gm 50 ML IV SCH (13:03)
[2024-04-11] MEDS: normal saline 1000ml 1,000 ML IV ONE ×2 (13:26)
[2024-04-11] MEDS: INSULIN LISPRO 100 UNIT/ML INSULN.PEN MULTI-DOSE SQ SCH (13:47)
[2024-04-11] MEDS: potassium Cl 20 mEq SR tablet PO PRN (15:51)
[2024-04-11 18:00] VITALS: BP 145/51; PULSE 80; RESP 16; TEMP 97.2; O2SAT 100
[2024-04-11 19:00] LABS: BASOPHILS # (AUTO) 0.1 X10'3 (0-0.2); BASOPHILS % (AUTO) 0.5 % (0-1); EOSINOPHILS # (AUTO) 0.3 X10'3 (0-0.9); EOSINOPHILS % (AUTO) 1.5 % (0-6); HEMATOCRIT 40.6 % (35.0-45.0); LYMPHOCYTES # (AUTO) 3.5 X10'3 (1.1-4.8); LYMPHOCYTES % (AUTO) 19.6 % (21-51); MEAN CORPUSCULAR HEMOGLOBIN 27.6 PG (27.0-31.0); MEAN CORPUSCULAR HGB CONC 32.1 g/dL (33.0-36.5); MEAN CORPUSCULAR VOLUME 86.1 FL (78-98); MEAN PLATELET VOLUME 11.2 FL (7.4-10.4); MONOCYTES % (AUTO) 5.7 % (2-12); NEUTROPHILS % (AUTO) 72.7 % (42-75); PLATELET COUNT 127 X10'3 (140-440); RED BLOOD COUNT 4.72 X10'6 (4.20-5.60); RED CELL DISTRIBUTION WIDTH 16.3 % (11.5-14.5); WHITE BLOOD COUNT 17.9 X10'3 (4.5-11.0)
[2024-04-11 20:00] VITALS: RESP 16; O2SAT 100
[2024-04-11] MEDS: insulin glargine (Lantus) pen - multi-dose SQ SCH (21:53)
[2024-04-11 22:00] VITALS: BP 125/41; PULSE 70; RESP 16; TEMP 97.8; O2SAT 98
[2024-04-12 06:15] LABS: BASOPHILS # (AUTO) 0.1 X10'3 (0-0.2); BASOPHILS % (AUTO) 0.5 % (0-1); EOSINOPHILS # (AUTO) 0.3 X10'3 (0-0.9); EOSINOPHILS % (AUTO) 3.4 % (0-6); HEMATOCRIT 34.1 % (35.0-45.0); HEMOGLOBIN 11.4 g/dl (12.0-16.0); LYMPHOCYTES # (AUTO) 2.1 X10'3 (1.1-4.8); MEAN CORPUSCULAR HEMOGLOBIN 27.8 PG (27.0-31.0); MEAN CORPUSCULAR HGB CONC 33.5 g/dL (33.0-36.5); MEAN PLATELET VOLUME 10.5 FL (7.4-10.4); MONOCYTES # (AUTO) 0.5 X10'3 (0-0.9); MONOCYTES % (AUTO) 5.2 % (2-12); NEUTROPHILS # (AUTO) 7.4 X10'3 (1.8-7.7); NEUTROPHILS % (AUTO) 70.9 % (42-75); PLATELET COUNT 131 X10'3 (140-440); RED BLOOD COUNT 4.11 X10'6 (4.20-5.60); RED CELL DISTRIBUTION WIDTH 16.1 % (11.5-14.5); WHITE BLOOD COUNT 10.4 X10'3 (4.5-11.0)
[2024-04-12 06:34] LABS: ALANINE AMINOTRANSFERASE 14 U/L (12-78); ALBUMIN 2.4 G/DL (3.4-5.0); ALBUMIN/GLOBULIN RATIO 0.8 (1.1-1.5); ALKALINE PHOSPHATASE 126 IU/L (46-116); ANION GAP 8 (8-16); ASPARTATE AMINO TRANSFERASE 16 U/L (10-37); BILIRUBIN,TOTAL 0.6 MG/DL (0.1-1.0); BLOOD UREA NITROGEN 10 MG/DL (7-18); BUN/CREATININE RATIO 15.2 (10.0-20.0); CALCIUM 7.4 MG/DL (8.5-10.1); CHLORIDE 109 MMOL/L (99-107); CREATININE 0.66 MG/DL (0.40-0.90); GLUCOSE 119 MG/DL (70-104); MAGNESIUM 1.6 MG/DL (1.5-2.4); POTASSIUM 3.8 MMOL/L (3.5-5.1); SODIUM 141 MMOL/L (135-145); TOTAL CARBON DIOXIDE 24.5 MMOL/L (24-32); TOTAL PROTEIN 5.6 G/DL (6.4-8.2); eCRCL 53 ML/MIN; eGFR 87 ML/MIN
[2024-04-12 07:36] VITALS: BP 124/49; PULSE 76; RESP 16; TEMP 97.4; O2SAT 100
[2024-04-12 08:00] VITALS: RESP 16
[2024-04-12 10:00] VITALS: BP 106/67; PULSE 80; RESP 16; TEMP 98.2; O2SAT 93
[2024-04-12 10:54] VITALS: RESP 16; O2SAT 100
[2024-04-12] MEDS ORDERED: POTA-207 PO (10:54)
[2024-04-12] MEDS ORDERED: CEFD300C3 PO (10:54)
[2024-04-12] MEDS ORDERED: LOSA50TA64 PO (10:54)
[2024-04-12] MEDS ORDERED: MAGN400C PO (10:54)
[2024-04-12] MEDS ORDERED: LACT1CAP74 PO (10:54)
[2024-04-12] MEDS ORDERED: AMLO5TAB16 PO (10:54)
== END 2024-04-12 15:18 | disposition home health service (06) | DRG 640 ==
LOC: ER 18:12 → ED HOLD 04-09 01:00 → SUR 3N 04-09 07:07
PROVIDERS: ADMIT Surgery Surgical Critical Care; ATTEND Family Medicine
DX: E87.6 Hypokalemia (principal); N17.0 Acute kidney failure with tubular necrosis; N39.0 Urinary tract infection, site not specified; E86.0 Dehydration; E83.42 Hypomagnesemia; E11.42 Type 2 diabetes mellitus with diabetic polyneuropathy; I10 Essential (primary) hypertension; F03.90 Unspecified dementia, unspecified severity, without behavioral disturbance, psychotic disturbance, mood disturbance, and anxiety; M06.9 Rheumatoid arthritis, unspecified; Z88.8 Allergy status to other drugs, medicaments and biological substances; Z79.899 Other long term (current) drug therapy; Z79.4 Long term (current) use of insulin; Z95.1 Presence of aortocoronary bypass graft
CPT/HCPCS: 36415; 70450; 71045; 76700; 80053; 81001; 81003; 82570; 82948; 82977; 83036; 83605; 83690; 83735; 84100; 84132; 84133; 84145; 84300; 84443; 85007; 85008; 85025; 87040; 87045; 87046; 87077; 87081; 87088; 87186; 87324; 87449; 93005; 93306; 97116; 97161; 97530; 99285; C1758; G0378; J0696; J1650; J1815; J2405; J3480; J7030; J7512

== ENCOUNTER 2024-08-15 12:58 | Emergency (ER) | payer MEDICARE, OTHER ==
[~2024-08-15] VITALS: Ht 154.9 cm; Wt 55.4 kg
[~2024-08-15 12:58] MED LIST changes: +ATOR20TA66 PO; +BACL5TAB PO; -BENZ200C53 PO; -CHOL400T14 PO; +CIPR-202 PO; +DICY10CA88 PO; +DULO30CA52 PO; -LEVO-65 PO; +LEVO100T78 PO; -LOSA-415 PO; +LOSA50TA64 PO; +ONDA-103 PO; -POTA8CAP20 PO; -PRED2.5T4 PO
--- NOTE | 2024-08-15 13:13 | Physician Documentation ---
History of Present Illness ~ General Stated Complaint: INGESTION ERROR Time Seen by MD: 13:22 Primary Medical Doctor: RAVEN BARNETT History of Present Illness Initial Comments 79-year-old female accidentally took her AM meds instead of her AM meds. She received metformin which was her 's med she did receive her 15 units of Humalog this morning but she did have breakfast and had some food when they were at [employer]. Patient has history of dementia as law. They contacted primary care who stated that it was likely all that to go to the emergency department just to make sure. Medication Reconciliation Allergies: Coded Allergies: aspirin (Verified Allergy, Severe, VOMITING, 08/15/24) donepezil (Verified Adverse Reaction, Severe, 08/15/24) diphenhydramine (Verified Adverse Reaction, Intermediate, anxiety, 08/15/24) lactose (Verified Adverse Reaction, Intermediate, ABD. PAIN, 08/15/24) Scheduled Atorvastatin Calcium (Atorvastatin Calcium), 1 TAB PO DAILY, (Reported) Ciprofloxacin HCl (Ciprofloxacin HCl), 1 TAB PO BID Dicyclomine Hcl* (Bentyl*), 1 CAP PO TID, (Reported) Dulaglutide (Trulicity), 0.5 ML SUBCUT Q7D, (Reported) Duloxetine HCl (Duloxetine HCl), 1 CAP PO DAILY, (Reported) Duloxetine Hcl* (Cymbalta*), 1 CAP PO DAILY, (Reported) Insulin Glargine,Hum.rec.anlog* (Lantus*), 32 UNITS SUBCUT HS, (Reported) Insulin Lispro (Humalog), 16 UNITS SQ AC, (Reported) Levothyroxine Sodium (Synthroid), 1 TAB PO DAILY, (Reported) Levothyroxine Sodium (Levoxyl), 1 TAB PO DAILY, (Reported) Losartan Potassium (Losartan Potassium), 50 MG PO DAILY Omeprazole (Omeprazole), 1 CAP PO DAILY, (Reported) Pregabalin (Pregabalin), 1 CAP PO DAILY, (Reported) Scheduled PRN ONDANSETRON ODT 4mg tablet (Ondansetron Odt), 1 TAB PO Q6H PRN PRN for nausea/vomiting, (Reported) Ondansetron HCl (Ondansetron HCl), 1 TAB PO Q8H PRN for nausea/vomiting, (Reported) Miscellaneous Medications Baclofen (Baclofen), 5 MG PO, (Reported) Durable Medical Equipment Walker, Front Wheeled (Walker, Front-wheeled), UNIT, (DME) Past Medical History Past Medical History: Dementia, Peripheral Neuropathy, Hypertension, Diabetes, Rheumatoid Arthritis, *INFECTIOUS DZ* Past Surgical History: abdominal surgery Patient History: (CABG) Coronary artery bypass grafting FATHER, Onset:30's - 40 (CHF) Congestive heart failure FATHER, Onset:60 years & older (DM Type 2) Diabetes mellitus type 2 MOTHER, Onset:60 years & older BROTHER, Onset:15's - 20 Other Past Family History: NONCONTRIBUTORY Alcohol Use: None Drug Use: none Lives with: Spouse Lives In: Home Occupation: retired Review of Systems All Other Systems at this time: Reviewed and Negative Physical Exam Physical Exam General Appearance: alert, WD/WN, somnolent Head: normal inspection Respiratory: lungs clear, normal breath sounds, no respiratory distress Chest: no accessory muscle use, chest non-tender Cardiovascular: normal peripheral pulses, regular rate, rhythm, no murmur; No: JVD Progress Results/Orders Results/Orders Orders - CHULA LEO [employer] Monitor (08/15/24 13:40) Saline Lock (08/15/24 13:40) Gait Test (08/15/24 ) * Orthostatic Vitals* Q12H (08/15/24 14:35) * Blood Glucose Assessment * ACHS (08/15/24 14:35) Completed Orders - CHULA LEO [employer] Electrocardiogram (08/15/24 13:40) Normal Saline 1000ml (Sodium Chloride 10 (08/15/24 13:40) Medications Received in ER Medications (Trade) Dose Ordered Sig/Raiza Route PRN Reason Start Time Stop Time Status Last Admin Dose Admin (sodium chloride 1000ml IV soln) 1,000 ml ONCE ONCE IVB 08/15/24 13:40 08/15/24 13:42 DC 08/15/24 14:26 1,000 ML Vital Signs 08/15/24 08/15/24 08/15/24 08/15/24 13:22 13:45 14:06 14:26 Temp 98.6 Pulse 78 81 81 Resp 16 16 15 B/P (MAP) 54/ 62/37 (45) 102/34 (56) Pulse Ox 98 98 99 O2 Flow Rate 0 0 0 08/15/24 08/15/24 15:13 15:37 Pulse 87 82 91 85 Resp 12 B/P (MAP) 154/44 (80) 100/39 114/43 97/35 Pulse Ox 100 O2 Flow Rate 0 Laboratory Tests Test 08/15/24 13:27 Glucometer 143 H Medical Decision Making Findings Blood sugar was in the 140 in triage. Will encourage snacks data having metformin and insulin. Patient's blood pressure in triage ride in the 50s systolic with her and has been having hypertension we will give her a L of fluid and have EKG and monitor. Feeling well. Patient received a L of fluid gait test, orthostatic vital, and blood glucose check ordered. Small amount of orthostatic swollen with standing patient states that she felt slightly dizzy for a couple of sec all standing with her walker which she uses at [facility]. Patient desires to go home and wait any longer in the emergency department instructed patient up meds until tomorrow morning. Patient's hopes at with rest pain encouraged in getting upset only using a walker and a cane today. Departure Time of Disposition: 15:40 Disposition: 01 HOME / SELF CARE / HOMELESS Impression: Primary Impression: Medication administered in error Additional Impressions: Medication adverse effect Hypotension Condition: Stable Discharge Instructions: Hypotension, [id number] Additional Instructions: Leeanna can take her duloxetine, atorvastatin, and Levoxyl today. Patient should HOLD losartan and not take it tonight but restart on her own medication tomorrow. Follow up with primary care on Sunday feel free to return to the ER for any new or worsening symptoms. Patient's should get up slow and only use walker not the cane today. Referrals: NO PRIMARY CARE PROVIDER (PCP) Education Educated: Patient, Family Educated regarding: diagnosis, treatment, need for follow up Signature Scribe Signature: No scribe Attestation: The note accurately reflects work and decisions made by me.Chula Leo - PRECIOUS 08/15/24 13:39 CHULA LEO NP Aug 15, 2024 13:13
[2024-08-15 13:22] VITALS: TEMP 98.6
--- NOTE | 2024-08-15 13:43 | ELECTROCARDIOGRAPH REPORT ---
[facility] Test Date: 2024-08-15 Test Time: 13:34:16 Pat Name: ISIDRO EISENBERG Department: EMERGENCY ROOM Patient ID: [id number] Room: Gender: F Weight Checker: KH : 1945 Requested By: JAN ZULUAGA Order Number: [id number] Reading MD: Dr. Edgardo Atkinson Measurements Intervals [place] Rate: 88 P: 23 WA: 135 QRS: -30 QRSD: 86 T: 25 QT: 402 QTc: 487 Interpretive Statements Sinus rhythm Left ventricular hypertrophy Anterior Q waves, possibly due to LVH Electronically Signed On 08-15-2024 18:22:[address] Edgardo Atkinson Please click the below link to view image of tracing.
[2024-08-15] MEDS: normal saline 1000ML IV soln IVB ONE (14:26)
[2024-08-15 16:06] VITALS: BP 118/45; PULSE 86; RESP 16; O2SAT 96
== END 2024-08-15 16:05 | disposition home or self-care (01) ==
LOC: ER 12:59
DX: I95.9 Hypotension, unspecified (principal); T38.3X5A Adverse effect of insulin and oral hypoglycemic [antidiabetic] drugs, initial encounter; E11.42 Type 2 diabetes mellitus with diabetic polyneuropathy; I11.0 Hypertensive heart disease with heart failure; I50.9 Heart failure, unspecified; F03.90 Unspecified dementia, unspecified severity, without behavioral disturbance, psychotic disturbance, mood disturbance, and anxiety; Z88.6 Allergy status to analgesic agent; Z88.8 Allergy status to other drugs, medicaments and biological substances; Z95.1 Presence of aortocoronary bypass graft; Z79.899 Other long term (current) drug therapy; Y92.89 Other specified places as the place of occurrence of the external cause
CPT/HCPCS: 82948; 93005; 96360; 99285; J7030

== ENCOUNTER 2024-10-17 20:37 | Emergency (ER) | payer MEDICARE, OTHER ==
[~2024-10-17] VITALS: Ht 154.9 cm; Wt 62.3 kg
[~2024-10-17 20:37] MED LIST changes: -CIPR-202 PO
[2024-10-17 20:44] VITALS: TEMP 97
--- NOTE | 2024-10-17 23:36 | Physician Documentation ---
History of Present Illness ~ Chief Complaint: Diabetic Complication Stated Complaint: MEDICATION COMPLICATION Time Seen by MD: 23:36 Primary Medical Doctor: RAVEN BARNETT Mode of Arrival: POV HPI Patient presents to the emergency room for evaluation of medication errors. Patient injected some Humalog when she was supposed to inject Lantus. Patient has a continuous blood glucose monitor. Denies SI/HI Medication Reconciliation Allergies: Coded Allergies: aspirin (Verified Allergy, Severe, VOMITING, 10/17/24) donepezil (Verified Adverse Reaction, Severe, 10/17/24) diphenhydramine (Verified Adverse Reaction, Intermediate, anxiety, 10/17/24) lactose (Verified Adverse Reaction, Intermediate, ABD. PAIN, 10/17/24) Scheduled Atorvastatin Calcium (Atorvastatin Calcium), 1 TAB PO DAILY, (Reported) Dicyclomine Hcl* (Bentyl*), 1 CAP PO TID, (Reported) Dulaglutide (Trulicity), 0.5 ML SUBCUT Q7D, (Reported) Duloxetine HCl (Duloxetine HCl), 1 CAP PO DAILY, (Reported) Duloxetine Hcl* (Cymbalta*), 1 CAP PO DAILY, (Reported) Insulin Glargine,Hum.rec.anlog* (Lantus*), 32 UNITS SUBCUT HS, (Reported) Insulin Lispro (Humalog), 16 UNITS SQ AC, (Reported) Levothyroxine Sodium (Synthroid), 1 TAB PO DAILY, (Reported) Levothyroxine Sodium (Levoxyl), 1 TAB PO DAILY, (Reported) Losartan Potassium (Losartan Potassium), 50 MG PO DAILY Omeprazole (Omeprazole), 1 CAP PO DAILY, (Reported) Pregabalin (Pregabalin), 1 CAP PO DAILY, (Reported) Scheduled PRN ONDANSETRON ODT 4mg tablet (Ondansetron Odt), 1 TAB PO Q6H PRN PRN for nausea/vomiting, (Reported) Ondansetron HCl (Ondansetron HCl), 1 TAB PO Q8H PRN for nausea/vomiting, (Reported) Miscellaneous Medications Baclofen (Baclofen), 5 MG PO, (Reported) Durable Medical Equipment Walker, Front Wheeled (Walker, Front-wheeled), UNIT, (DME) Past Medical History Past Medical History: Dementia, Peripheral Neuropathy, Hypertension, Diabetes, Rheumatoid Arthritis, *INFECTIOUS DZ* Past Surgical History: abdominal surgery Patient History: (CABG) Coronary artery bypass grafting FATHER, Onset:30's - 40 (CHF) Congestive heart failure FATHER, Onset:60 years & older (DM Type 2) Diabetes mellitus type 2 MOTHER, Onset:60 years & older BROTHER, Onset:15's - 20 Other Past Family History: NONCONTRIBUTORY Alcohol Use: None Drug Use: none Lives with: Spouse Lives In: Home Occupation: retired Review of Systems ROS All review of systems negative except as per HPI Physical Exam Vital Signs: Temperature: 97.0, Source: Temporal, Heart Rate: 87, Respiratory Rate: 20, BP: 120/67, Pulse Oximetry: 96, Weight: 62.270 Oxygen Flow Rate: 0 Physical Exam General: Patient is awake, alert, oriented x4 in no acute distress and well appearing.~ Head: Normocephalic and atraumatic. Eyes: Conjunctival normal. EOMI. PERRL. ENT: Mucous membranes moist. Neck: Supple, trachea is midline. Chest: Clear to auscultation bilaterally without rales, rhonchi, or wheezes. There is no accessory muscle use or retractions. Cardiac: RRR without murmurs, gallops, or rubs. Abd: Soft, nondistended, nontender, with normoactive bowel sounds. No guarding, rebound, or rigidity. Progress Results/Orders Results/Orders Vital Signs 10/17/24 10/17/24 10/17/24 10/17/24 20:44 22:04 23:22 23:32 Temp 97.0 Pulse 88 90 87 Resp 16 16 28 20 B/P (MAP) 128/67 122/91 (101) 120/67 (84) Pulse Ox 96 98 96 O2 Flow Rate 0 0 10/18/24 10/18/24 00:00 00:57 Pulse 83 81 Resp 16 16 B/P (MAP) 136/60 (85) 115/62 (79) Pulse Ox 98 98 Laboratory Tests Test 10/17/24 20:49 10/17/24 22:01 10/17/24 22:56 10/17/24 23:24 Glucometer 118 H 85 59 L 55 L Test 10/18/24 00:30 10/18/24 01:10 Glucometer 97 Medical Decision Making Findings Patient presents to the emergency room after medication errors as per HPI. Differentials include but are not limited to hypoglycemia, hyperglycemia, suicidal attempt, infectious process. Given history and he had not feel emergent labs are necessary however she did require to be evaluated and monitored for several hours. Half-life of Humalog is 1 hour subcutaneous therefore she was watch for 5 hours with no additional hypoglycemic episodes. She has a continuous blood glucose monitor and feels comfortable leaving in his asking to go. ER precautions discussed. She demonstrates good insight in his believe this was a simple error and not a suicidal attempt. Departure Disposition: HOME / SELF CARE / HOMELESS Impression: Primary Impression: Medication administered in error Condition: Stable Discharge Instructions: General Discharge Instructions Additional Instructions: Be very careful when administering your insulins Referrals: NO PRIMARY CARE PROVIDER (PCP) Education Educated: Patient, Family Educated regarding: diagnosis, need for follow up Signature Scribe Signature: No scribe Attestation: The note accurately reflects work and decisions made by me.Efren Frey MD 10/18/24 01:25 EFREN FREY MD Oct 17, 2024 23:36
[2024-10-18 01:34] VITALS: BP 114/64; PULSE 82; RESP 16; O2SAT 95
== END 2024-10-18 01:39 | disposition home or self-care (01) ==
LOC: ER 20:37
DX: T50.991A Poisoning by other drugs, medicaments and biological substances, accidental (unintentional), initial encounter (principal); E11.42 Type 2 diabetes mellitus with diabetic polyneuropathy; F03.90 Unspecified dementia, unspecified severity, without behavioral disturbance, psychotic disturbance, mood disturbance, and anxiety; M06.9 Rheumatoid arthritis, unspecified; I10 Essential (primary) hypertension; Z88.6 Allergy status to analgesic agent; Z88.8 Allergy status to other drugs, medicaments and biological substances; Z95.1 Presence of aortocoronary bypass graft; Y63 Failure in dosage during surgical and medical care
CPT/HCPCS: 82948; 99285